=== PATIENT | female | born 1960 | race Caucasian/White ===

== ENCOUNTER 2016-10-19 11:38 | Emergency (ER) | payer MEDICAID ==
[2016-10-19] MEDS ORDERED: HYDROCODONE/APAP 10/325 TAB PO ONE (11:57)
[2016-10-19] MEDS ORDERED: HYDROCODONE/APAP 5/325 TAB PO ONE (12:04)
--- NOTE | 2016-10-19 13:06 | EDPHY ---
H & P Stated Complaint: l trapezius/neck and l shoulder pain/x 1.5 weeks no trauma Time Seen by Provider: 10/19/16 12:52 HPI/ROS: CHIEF COMPLAINT: Left shoulder pain HISTORY OF PRESENT ILLNESS: The patient is a 56-year-old female with no significant past medical history who comes to the emergency department complaining of left trapezius pain and spasming. She states that she woke up with this pain about a week and half ago. She thought that she likely just slept on it wrong but it has not gone away. She denies any fall or trauma. She denies any heavy lifting or strenuous activity. She has not had any neck pain or headache. No weakness, numbness or paresthesias. No back pain. No chest or abdominal pain. REVIEW OF SYSTEMS: Constitutional: denies: chills, fever, recent illness, recent injury EENTM: denies: blurred vision, double vision, nose congestion Respiratory: denies: cough, shortness of breath Cardiac: denies: chest pain, irregular heart rate, lightheadedness, palpitations Gastrointestinal/Abdominal: denies: abdominal pain, diarrhea, nausea, vomiting, blood streaked stools Genitourinary: denies: dysuria, frequency, hematuria, pain Musculoskeletal: A see HPI Skin: denies: lesions, rash, jaundice, bruising Neurological: denies: headache, numbness, paresthesia, tingling, dizziness, weakness Hematologic/Lymphatic: denies: blood clots, easy bleeding, easy bruising Immunologic/allergic: denies: HIV/AIDS, transplant EXAM: GENERAL: Well-appearing, well-nourished and in no acute distress. HEAD: Atraumatic, normocephalic. EYES: Pupils equal round and reactive to light, extraocular movements intact, sclera anicteric, conjunctiva are normal. ENT: TMs normal, nares patent, oropharynx clear without exudates. Moist mucous membranes. NECK: Normal range of motion, supple without lymphadenopathy or JVD. LUNGS: Breath sounds clear to auscultation bilaterally and equal. No wheezes rales or rhonchi. HEART: Regular rate and rhythm without murmurs, rubs or gallops. ABDOMEN: Soft, nontender, normoactive bowel sounds. No guarding, no rebound. No masses appreciated. BACK: No CVA tenderness, no spinal tenderness, step-offs or deformities EXTREMITIES: Left trapezius pain and spasming. Improves with massage. No cervical or thoracic spine pain. Normal range of motion, no pitting or edema. No clubbing or cyanosis. NEUROLOGICAL: Cranial nerves II through XII grossly intact. Normal speech, normal gait. 5/5 strength, normal movement in all extremities, normal sensation PSYCH: Normal mood, normal affect. SKIN: Warm, dry, normal turgor, no visible rashes or lesions. Source: Patient Exam Limitations: No limitations - Personal History Current Tetanus/Diphtheria Vaccine: Yes - Medical/Surgical History Hx Asthma: No Hx Chronic Respiratory Disease: No Hx Diabetes: No Hx Cardiac Disease: No Hx Renal Disease: No Hx Cirrhosis: No Hx Alcoholism: No Hx HIV/AIDS: No Hx Splenectomy or Spleen Trauma: No Other PMH: denies - Family History Significant Family History: No pertinent family hx - Social History Smoking Status: Current every day smoker Alcohol Use: Sober Drug Use: None Constitutional: Initial Vital Signs Temperature (C) 36.5 C 10/19/16 11:42 Heart Rate 85 10/19/16 11:42 Respiratory Rate 20 10/19/16 11:42 Blood Pressure 126/56 H 10/19/16 11:42 O2 Sat (%) 93 10/19/16 11:42 O2 Delivery Mode Room Air Allergies/Adverse Reactions: aspirin Allergy (Verified 10/19/16 11:42) Home Medications: Medication Instructions Recorded Hydrocodone/APAP 5/325 [[place] 1 - 2 tab PO Q4H PRN #20 tab 10/19/16 5/325 (RX)] Medical Decision Making ED Course/Re-evaluation: We discussed trigger point injection. I did inject the patient's trapezius with 5 cc of 0.5 bupivacaine without epinephrine. Will monitor for effectiveness. The patient is feeling better after the trigger point injection but not completely. I will also treat her with Vicodin and refer her to physical therapy and primary care physician. She states that she lives close to the [facility]. She understands and agrees with this plan. We discussed indications for returning. Differential Diagnosis: Partial list of the Differential diagnosis considered include but were not limited to; muscular spasm, neck injury, fracture, radiculopathy and although unlikely based on the history and physical exam, I also considered splenic injury, pneumonia, acute coronary disease. I discussed these differential diagnoses and the plan with the patient as well as the usual and expected course. The patient understands that the diagnosis is provisional and that in medicine we are not always correct and that further workup is often warranted. Usual and customary warnings were given. All of the patient's questions were answered. The patient was instructed to return to the emergency department should the symptoms at all worsen or return, otherwise to followup with the physician as we discussed. - Data Points Medications Given: Discontinued Medications Acetaminophen/Hydrocodone Bitart ([place] 10/325) 2 tab PO EDNOW ONE Stop: 10/19/16 11:58 Last Admin: 10/19/16 12:03 Dose: Not Given Acetaminophen/Hydrocodone Bitart ([place] 5/325) 2 tab PO EDNOW ONE Stop: 10/19/16 12:05 Last Admin: 10/19/16 12:07 Dose: 2 tab Departure - Departure Disposition: Home, Routine, Self-Care Clinical Impression: Muscle spasm Condition: Fair Instructions: Muscle Spasm (ED) Referrals: NONE *PRIMARY CARE P,. [Primary Care Provider] - As per Instructions [facility] [Outside] - As per Instructions Carissa Child PA [Physician [place] Worker] - As per Instructions Prescriptions: Hydrocodone/APAP 5/325 [[place] 5/325 (RX)] 1 - 2 tab PO Q4H PRN #20 tab PRN Reason: Pain, Moderate
[2016-10-19 13:43] VITALS: BP 139/90; PULSE 89; RESP 18; TEMP 98.4; O2SAT 96
== END 2016-10-19 13:40 | disposition home or self-care (01) ==
DX: M62.838 Other muscle spasm (principal); F17.200 Nicotine dependence, unspecified, uncomplicated